=== PATIENT | female | born 1965 | race Caucasian/White ===

== ENCOUNTER 2017-07-05 18:59 | Emergency (ER) | payer OTHER ==
[2017-07-05 19:38] VITALS: BP 110/58
--- NOTE | 2017-07-05 20:05 | UC ---
Skin Complaint HPI - HPI Summary HPI Summary: C/O rash, itchy, red, scaling under left eye and at the right corner of the mouth. - History of Current Complaint Chief Complaint: UCSkin Time Seen by Provider: 07/05/17 19:55 Stated Complaint: FACIAL RASH Hx Obtained From: Patient Hx Last Menstrual Period: 12/27/14 ?: No Onset/Duration: Gradual Onset, Lasting Days - 3, Worse Since - onset Timing: Constant Onset Severity: Mild Current Severity: Mild Pain Intensity: 0 Location: Face Character: Pruritus, Redness Aggravating Factor(s): Nothing Alleviating Factor(s): Nothing Associated Signs & Symptoms: Positive: Cough - just started 2 days ago with wheezing, Rash. Negative: Nausea, Vomiting, Diaphoresis, Weakness, Fever, Chills, Abdominal Pain, Lightheadedness, Bruising, Tenderness - Allergy/Home Medications Allergies/Adverse Reactions: Allergies Allergy/AdvReac Type Severity Reaction Status Date / Time Morphine AdvReac Intermediate Palpitation Verified 07/05/17 19:30 s Review of Systems Skin: Rash Respiratory: Cough Is Patient Immunocompromised?: No All Other Systems Reviewed And Are Negative: Yes PMH/Surg Hx/FS Hx/Imm Hx Endocrine History: Diabetes Respiratory History: Asthma - Surgical History Surgical History: Yes Surgery Procedure, Year, and Place: Cholecystectomy-, Left knee replacement , 2017 - Family History Known Family History: Positive: Diabetes - Social History Occupation: Disabled Lives: With Family Alcohol Use: None Substance Use Type: None Smoking Status (MU): Former Smoker Type: Cigarettes When Did the Patient Quit Smoking/Using Tobacco: 1992 Physical Exam Triage Information Reviewed: Yes Appearance: Well-Appearing, No Pain Distress, Obese Vital Signs: Initial Vital Signs Temp 97.6 F 07/05/17 19:32 Pulse 77 07/05/17 19:32 Resp 20 07/05/17 19:32 BP 110/58 07/05/17 19:32 Pulse Ox 99 07/05/17 19:32 Vital Signs Reviewed: Yes Eyes: Positive: Conjunctiva Clear Neck exam: Normal Respiratory: Positive: Wheezing - expiratory wheeze with cough Cardiovascular Exam: Normal Musculoskeletal: Positive: Other: - antalgic gait Neurological Exam: Normal Psychological Exam: Normal Skin: Positive: rashes - scaling erythematous papular rash on the face. Course/Dx - Differential Diagnoses - Skin Complaint Differential Diagnoses: Cellulitis, Eczema, Impetigo - Diagnoses Provider Diagnoses: Eczema. Asthma with acute exacerbation. Discharge - Discharge Plan Condition: Stable Disposition: HOME Prescriptions: Cetirizine* [ZyrTEC 10 MG TAB*] 10 mg PO DAILY PRN #30 tab PRN Reason: Itching Hydrocortisone 2.5% CREAM(NF) 1 applic TOPICAL BID #30 tube Ketoconazole 2 % CREAM (NF) [Nizoral 2% CREAM (NF)] 1 applic TOPICAL BID #15 gm predniSONE TAB* [Deltasone TAB*] 20 mg PO DAILY #18 tab Patient Education Materials: Eczema (ED), Hydrocortisone (On the skin) Referrals: Gladis Barnhart MD [Primary Care Provider] - Additional Instructions: Try Head and Shoulders Intensive treatment for your scalp. Images Head: 1 - rash 2 - rash 3 - rash
== END 2017-07-05 20:30 | disposition home or self-care (01) ==
LOC: UCCORT 18:59
DX: L30.9 Dermatitis, unspecified (principal); J45.901 Unspecified asthma with (acute) exacerbation
CPT/HCPCS: 99212; G0463

== ENCOUNTER 2017-11-02 15:16 | Emergency (ER) | payer OTHER ==
[2017-11-02 16:55] VITALS: BP 128/58
--- NOTE | 2017-11-02 17:04 | UC ---
Headache HPI - HPI Summary HPI Summary: Patient complains of having headache for 1 week has not taken any Tylenol or ibuprofen has not had any recent falls or injuries no nausea or vomiting just ate a meal and tolerated it well. - History Of Current Complaint Chief Complaint: UCHeadache Stated Complaint: HEADACHE Time Seen by Provider: 11/02/17 16:57 Hx Obtained From: Patient Hx Last Menstrual Period: 12/27/14 ?: No Onset/Duration: Sudden Onset, Lasting Days - 7 Pain Intensity: 9 Pain Scale Used: 0-10 Numeric Timing: Constant Character: Pressure Location of Headache: Other: - top of head Aggravating Factor(s): Nothing Allevating Factor(s): Nothing Associated Signs And Symptoms: Positive: Negative - Allergies/Home Medications Allergies/Adverse Reactions: Allergies Allergy/AdvReac Type Severity Reaction Status Date / Time morphine Allergy Unknown palpatation Verified 11/02/17 17:25 s PMH/Surg Hx/FS Hx/Imm Hx Previously Healthy: No Endocrine History: Dyslipidemia Cardiovascular History: Hypertension Respiratory History: Asthma - Surgical History Surgical History: Yes Surgery Procedure, Year, and Place: Cholecystectomy-99, Left knee replacement , 2016 - Family History Known Family History: Positive: None, Diabetes - Social History Occupation: Unemployed Lives: Dormitory/Roommates Alcohol Use: None Substance Use Type: None Smoking Status (MU): Former Smoker Type: Cigarettes When Did the Patient Quit Smoking/Using Tobacco: 1992 Review of Systems Constitutional: Negative Skin: Negative Eyes: Negative ENT: Negative Respiratory: Negative Cardiovascular: Negative Gastrointestinal: Negative Genitourinary: Negative Motor: Negative Neurovascular: Negative Musculoskeletal: Negative Neurological: Headache Psychological: Negative Is Patient Immunocompromised?: No All Other Systems Reviewed And Are Negative: Yes Physical Exam Triage Information Reviewed: Yes Appearance: Well-Appearing, No Pain Distress, Well-Nourished Vital Signs: Initial Vital Signs Temp 97.9 F 11/02/17 16:50 Pulse 74 11/02/17 16:50 Resp 17 11/02/17 16:50 BP 128/58 11/02/17 16:50 Pulse Ox 98 11/02/17 16:50 Vital Signs Reviewed: Yes Eye Exam: Normal Eyes: Positive: Conjunctiva Clear ENT Exam: Normal ENT: Positive: Normal ENT inspection, Hearing grossly normal, Pharynx normal, Uvula midline. Negative: Nasal congestion, TMs normal, Trismus, Muffled voice, Hoarse voice, Dental tenderness, Sinus tenderness Dental Exam: Normal Neck exam: Normal Neck: Positive: Supple, Nontender, No Lymphadenopathy Respiratory Exam: Normal Respiratory: Positive: Chest non-tender, Lungs clear, Normal breath sounds, No respiratory distress, No accessory muscle use Cardiovascular Exam: Normal Cardiovascular: Positive: RRR, No Murmur, Pulses Normal, Brisk Capillary Refill Musculoskeletal Exam: Normal Musculoskeletal: Positive: Strength Intact, ROM Intact, No Edema Neurological Exam: Normal Neurological: Positive: Alert, Muscle Tone Normal Psychological Exam: Normal Skin Exam: Normal Re-Evaluation - Re-Evaluation First Eval Change: Improved Headache Course/Dx - Course Course Of Treatment: rest increase fluids tylenol or ibuprofen prn - Differential Dx/Diagnosis Provider Diagnoses: headache Discharge - Sign-Out/Discharge Documenting (check all that apply): Discharge/Admit/Transfer - Discharge Plan Condition: Stable Disposition: HOME Patient Education Materials: Acute Headache (ED), Ibuprofen (By mouth) Referrals: Gladis Barnhart MD [Primary Care Provider] - 2 Weeks - Billing Disposition and Condition Condition: STABLE Disposition: HOME
[2017-11-02] MEDS ORDERED: Ketorolac INJ* 60 MG/2 ML VIAL IM ONE (17:05)
== END 2017-11-02 17:55 | disposition home or self-care (01) ==
LOC: UCCORT 15:16
DX: R51 Headache (principal); Z88.5 Allergy status to narcotic agent; I10 Essential (primary) hypertension; Z87.891 Personal history of nicotine dependence
CPT/HCPCS: 96372; 99211; G0463; J1885

== ENCOUNTER 2019-02-12 14:40 | Emergency (ER) | payer OTHER ==
--- OUTSIDE RECORDS SUMMARY | 2019-02-12 14:56 | XMS REPORT | Continuity of Care Document ---
:1965 External Reference #:[id number] Author Name Mary Ann Rich PA Address [address] [place] [address] Care Team Providers Name Role Phone Gay Nguyen M.D. - Obstetrics & Care Team Information [facility] Gyne[facility] Devin Rollins MD - Otolaryngology Care Team Information [facility] Angel Durham MD - Endocrinology, Care Team Information [facility] [phone] Diabetes & Metabolism Gwendolyn Song DO - Hematology & Care Team Information [facility] Oncology Deb Rosas,[facility] - Surgical Care Team Information [employer] [place] Alexis Boyer MD - Obstetrics & Care Team Information [facility] Gynecology Samuel Sim M.D. - Surgery Care Team Information [employer] [place] Gladis Barnhart MD - Internal Medicine Care Team Information [facility] Physical Therapy/[address] Care Team Information [employer] [place] [phone] Orville Zelaya MD - Rheumatology Care Team Information [facility] Care Team Information [facility] pc - Physical Therapy Al Sanchez Care Team Information [facility] [employer] [place] [phone] Corwin Kincaid M.D. - Adult Care Team Information [facility] [place] [phone] Reconstructive Orthopaedic Surgery Patrick Cole MD - Gastroenterology Care Team Information [employer] [place] [phone] Sil Jones [employer] Care Team Information [employer] [place] [phone] Maxx Mosqueda [employer] - Nurse Care Team Information [facility] [employer] [place] [phone] Practitioner Problems Active Problems Provider Date Hyperlipidemia Florecita Gonzales, MSN, Onset: 08/30/2012 [employer]CHO[employer] PROGRAM COORDINATOR Benign essential hypertension Florecita Gonzales, MSN, Onset: 08/30/2012 AFTER SCHOOL PROGRAM COORDINATOR Iron deficiency anemia Gwendolyn Song Onset: 10/31/2014 Morbid obesity Florecita Gonzales, MSN, Onset: 08/30/2012 AFTER SCHOOL PROGRAM COORDINATOR Tenosynovitis of hand Krista Alvarenga M.D. Onset: 03/01/2015 Type 2 diabetes mellitus Florecita Gonzales, MSN, Onset: 08/30/2012 AFTER SCHOOL PROGRAM COORDINATOR Disorder of breast Krista Alvarenga M.D. Onset: 08/31/2014 Osteoporosis Krista Alvarenga M.D. Onset: 08/31/2014 Hypothyroidism Krista Alvarenga M.D. Onset: 10/12/2014 Essential hypertension Gladis Barnhart MD Onset: 05/23/2015 Shoulder joint pain Gladis Barnhart MD Onset: 07/06/2015 Benign paroxysmal positional [facility]: 2015 Allergic rhinitis Gladis Barnhart MD Onset: 09/14/2015 Headache Gladis Barnhart MD Onset: 09/14/2015 Arthroplasty of knee Monica Miller MD Onset: 05/23/2016 Abdominal pain Patrick Cole MD Onset: 08/22/2016 Gastroparesis syndrome Patrick Cole MD Onset: 08/22/2016 Enthesopathy of knee Corwin Kincaid M.D. Onset: 10/16/2016 Aftercare following joint replacement Corwin Kincaid M.D. Onset: 10/16/2016 surgery Heartburn Patrick Cole MD Onset: 11/26/2016 Gastroduodenitis Patrick Cole MD Onset: 11/26/2016 Benign neoplasm of stomach Patrick Cole MD Onset: 11/26/2016 Abnormal glucose level Gladis Barnhart MD Onset: 07/31/2017 Eruption Gladis Barnhart MD Onset: 07/31/2017 Sciatica Gladis Barnhart MD Onset: 10/28/2017 Thyroid function tests abnormal Gladis Barnhart MD Onset: 10/28/2017 Encounter for other general Gladis Barnhart MD Onset: 10/28/2017 examination Unspecified injury of head, initial Stephan Lam M.D. Onset: 2017 encounter Neck sprain Stephan Lam M.D. Onset: 02/02/2018 Disorder of bursa of shoulder region Erin Johnson PA Onset: 06/18/2018 Neck pain Erin Johnson PA Onset: 06/18/2018 Social History Type Date Description Comments Sex Unknown Tobacco Use Start: Unknown End: Former Cigarette Smoker Unknown 1-5 Cigarettes Daily ETOH Use Denies alcohol use Tobacco Use Start: Unknown End: Patient is a former smoked 20 years ago. Unknown smoker Recreational Drug Use Denies Drug Use Smoking Status Reviewed: 01/28/19 Patient is a former smoked 20 years ago. smoker Allergies, Adverse Reactions, Alerts Active Allergies Reaction Severity Comments Date Morphine chest pain 10/06/2014 Medications Active Medications SIG Qnty Indications Ordering Date Provider Metronidazole 1 by mouth twice a 10tabs Obey, 500mg Tablets day MD Gladis 9 Fluconazole 1 by mouth daily x 1tabs N76.0 Obey, 150mg Tablets 1. MD Gladis 9 Miralax 1 packet by mouth 30units Obey, 3350NF Packet daily as needed MD Gladis 9 for constipation Hydrocortisone use sparingly on 28.400gm R21 Obey, 1% Ointment forearms twice a MD Gladis 9 day for 2 weeks on 2 weeks off Diabetic Shoes And diabetic shoes and 1pair E11.9 Obey, Custom Molded Orthotics custom molded MD Gladis 9 orthotics dx: e11.9 Ammonium Lactate applied to her 140gm R23.4 Arturo, 12% Cream feet daily CARMEN Aponte 9 True Metrix Blood use for glucose 300units Obey, Glucosetest Strips monitoring 1-3 x MD Gladis 9 Strips per week and as needed. dx code: e11.9 type 2 diabetes mellitus without complications True Metrix True Metrix 300units Obey, lancets. To check MD Gladis 9 blood glucose fasting and 2 hr pp dx 11.9 Freestyle Insulinx Blood to test blood 1units Obey, Glucose Monitoring sugar fasting and MD Gladis 9 System 2 hours after W/Device Kit meals DX E11.9 Oxybutynin Chloride take one tablet 60tabs Obey, 5mg twice a day MD Gladis 8 Tablets Colace 1 by mouth daily 60caps K59.00 Gagen, 100mg Capsules and can take twice Rowan, 8 a day as needed MS, AFTER SCHOOL PROGRAM COORDINATOR-C, CNM Vitamin D3 take one capsule 90caps Obey, 2000Unit Capsules every day in MD Gladis 8 morning Acetaminophen Extra 1 tab by mouth 60tabs Obey, Strength every 12 hours as MD Gladis 8 500mg Tablets needed pain Diclofenac Sodium Take One Tablet By 60tabs Corwin Kincaid, 75mg Mouth Twice A Day M.D. [address] With Food Hydroxychloroquine take one tablet by 180tabs Obey, Sulfate mouth twice a day MD Gladis 8 200mg Tablets Wrist Brace Deluxe/Left/ wear brace on left 1units M65.832 Obey, Large-XL wrist MD Gladis 8 Misc Potassium Chloride Julieta 1 tab by mouth 30tabs Obey, ER every day MD Gladis 8 20Meq Tablets ER Ferrous Gluconate 1 tab by mouth 30tabs Oeby, 324(38Fe) once a day MD Gladis 7 mg Tablets Linzess 1 by mouth every 90caps K59.00 Mallory, 290mcg Capsules day MD Angel 7 Omeprazole 1 by mouth every 30tabs Obey, 20mg Tablets DR day MD Bianka Griffith Fexofenadine HCL take one tablet by 30tabs Gagen, 180mg mouth every day Rowan, 6 Tablets MS, AFTER SCHOOL PROGRAM COORDINATOR-C, CNM Fluticasone Propionate 2 sprays 1bottle J30.9 Obey, intranasal every MD Gladis 5 50mcg/Act day Proair HFA 2 puffs every 4 8.500gm Obey, 108(90Base) hours as needed MD Gladis 0 mcg/Act Aerosol Escitalopram Oxalate take one every day 30tabs Obey, 20mg MD Gladis 0 Tablets Aspirin take one tablet by 30tabs Gagen, 81mg Tablets DR mouth every day Rowan, 0 MS, AFTER SCHOOL PROGRAM COORDINATOR-C, CNM Hydrochlorothiazide take one capsule 90caps Gagen, 12.5mg by mouth every day Rowan, 0 Capsules MS, AFTER SCHOOL PROGRAM COORDINATOR-C, CNM Folic Acid Take One Tablet By 30tabs Obey, 1mg Tablets Mouth Every Day MD Gladis 0 Pravastatin Sodium take one tablet by 30tabs Obey, 80mg mouth every day MD Gladis 0 Tablets Methotrexate 3 tabs by mouth Zelaya, 2.5mg Tablets twice per day Orville JANE 0 Cephalexin Take One Capsule Unknown 500mg Capsules By Mouth Every 12 0 Hours History Medications Selsun Blue Wash hair, leave it 16Oz L21.9 Gladis Barnhart, 10/05/2018 - Naturals Dry on for 5 minutes 12/08/2018 Scalp and then rinse 3% every day for 2 Shampoo weeks. Breo Ellipta one inhalation 30units Gladis Barnhart, 08/08/2018 - every day 10/05/2018 200-25mcg/Inh Aerosol Medications Administered in Office Medication SIG Qnty Indications Ordering Provider Date Methylprednisolone acetate Erin Johnson PA 06/18/2018 (Depomedrol) 80mg injection Injection Methylprednisolone acetate Deb Rosas, 12/15/2017 (Depomedrol) 80mg injection RPAC Injection Betamethasone Acetate & Sodium Deb Rosas, 12/15/2017 Phosphate 3 MG Of Each RPAC Injection Depomedrol 40mg/1cc Deb Rosas, 12/02/2016 (methylprednisolone acetate) RPAC Injection Methylprednisolone acetate Deb Rosas, 05/21/2016 (Depomedrol) 80mg injection RPAC Injection Depomedrol 40mg/1cc Deb Rosas, 04/02/2015 (methylprednisolone acetate) RPAC Injection Depo-Medrol 20mg Deb Rosas, 04/02/2015 Injection RPAC Depomedrol 40mg/1cc Deb Rosas, 01/11/2015 (methylprednisolone acetate) RPAC Injection Depomedrol 40mg/1cc Fadi Morgan, 06/15/2014 (methylprednisolone acetate) , FACS Injection Methylprednisolone acetate Иван Tolliver, 02/13/2010 (Depomedrol) 80mg injection Injection Immunizations CPT Code Status Date Vaccine Reaction Lot # 95991 Given 05/07/2018 Influenza Virus Vaccine, Quadrivalent, 36 none [id number] Mos+, .5ML 75585 Given 03/17/2017 Influenza Virus Vaccine Quadrivalent Iiv4 [id number] [address] Given 03/17/2016 Influenza Virus Vaccine Split Virus Use For Individual 3Yr Older 19832 Given 06/04/2015 Tetnus Injection [id number] 78614 Given 06/04/2015 Pneumococcal Conjugate Vaccine 13 Valent [id number] For Intramuscular Use Q2038 Given 03/01/2015 Influenza Vaccine (Fluzone) Age 3 And [id number] Older Vital Signs Date Vital Result Comment 01/28/2019 1:30pm BP Systolic Sitting Left Arm 106 mmHg BP Diastolic Sitting Left Arm 62 mmHg Body Temperature 98.1 F Heart Rate 76 /min Respiratory Rate 20 /min Height 66.25 inches 5'6.25" Weight 279.00 lb BMI (Body Mass Index) 44.7 kg/m2 BSA (Body Surface Area) 2.31 m2 [place] body weight in kilograms 60 kg O2 % BldC Oximetry 94 % 01/10/2019 9:14am BP Systolic 106 mmHg BP Diastolic 59 mmHg Body Temperature 98.7 F Heart Rate 68 /min Height 66.25 inches 5'6.25" Weight 284.00 lb BMI (Body Mass Index) 45.5 kg/m2 BSA (Body Surface Area) 2.33 m2 [place] body weight in kilograms 60 kg O2 % BldC Oximetry 87 % Results Test Date Facility Test Result H/L Range Note Affirm 01/28/2019 [facility] Trichomonas Negative [Negative] 1 Vaginitis Panel [address] [address] [phone] Gardnerella vaginalis POSITIVE Abnormal [Negative] Grisel species Negative [Negative] 2 Urine Dipstick 01/28/2019 [facility] Ua Color dark yellow Yellow Ua Clarity cloudy Clear Ua Leuko 3+ High Negative Ua Nitrite neg Negative Ua Urobilinogen +- Low 0.2 - 1.0 E.U./dL Ua Protein +- Negative Ua PH 5.0 Low 6.5-7.5 Ua Blood neg Negative Ua Specific [place] 1.025 1.010-1.030 Ua Ketones neg Negative Ua Bilirubin neg Negative Ua Glucose neg Negative GFR/Bsa pred.black 01/24/2019 N2N/CCD Import GFR/Bsa pred.black >60 >60 SerPl MDRD-ArVRat SerPl MDRD-ArVRat Estimated glomerular 01/24/2019 N2N/CCD Import Estimated >60 >60 filtration rate glomerular (GFR) non-Afr filtration rate (GFR) non- Serum or plasma 01/24/2019 N2N/CCD Import Serum or plasma 0.8 0.6-1.3 creatinine creatinine measurement measurement (mass/volum (mass/volume) Serum or plasma urea 01/24/2019 N2N/CCD Import Serum or plasma 16 7-18 nitrogen measurement urea nitrogen (mass/vo measurement (mass/volume) Serum or plasma 01/24/2019 N2N/CCD Import Serum or plasma 118 High 74- 106 glucose measurement glucose measurement (mass/volume) (mass/volume) Automated blood 01/24/2019 N2N/CCD Import Automated blood 0.00 nucleated nucleated erythrocyte count erythrocyte count (count (count/volume) Automated blood 01/24/2019 N2N/CCD Import Automated blood 0.02 immature granulocyte immature count (number granulocyte count (number/volume) Automated blood 01/24/2019 N2N/CCD Import Automated blood 0.03 0.0-0.1 basophil count basophil count (number/volume) (number/volume) Automated blood 01/24/2019 N2N/CCD Import Automated blood 0.19 0.0-0.5 eosinophil count eosinophil count Blood monocytes 01/24/2019 N2N/CCD Import Blood monocytes 0.55 0.3-0.9 automated count automated count (number/volume) (number/volume) Automated blood 01/24/2019 N2N/CCD Import Automated blood 1.30 1.0-4.0 lymphocyte count lymphocyte count (number/volume) (number/volume) Absolute neutrophil 01/24/2019 N2N/CCD Import Absolute neutrophil 4.35 1.8-7.0 count count Automated blood 01/24/2019 N2N/CCD Import Automated blood 0.0 < 10/ 100 nucleated nucleated WBC erythrocyte count as erythrocyte count per as percentage of total leukocytes Automated blood 01/24/2019 N2N/CCD Import Automated blood 0.3 0.0-5.0 immature granulocyte immature count as perc granulocyte count as percentage of total leukocytes Automated basophil % 01/24/2019 N2N/CCD Import Automated basophil 0.5 0.0-1.1 % Automated eosinophil 01/24/2019 N2N/CCD Import Automated 3.0 0.0-6.6 % eosinophil % Serum or plasma 01/24/2019 N2N/CCD Import Serum or plasma 60 56-289 lipase measurement lipase measurement (enzymatic acti (enzymatic activity/volume) Serum or plasma 01/24/2019 N2N/CCD Import Serum or plasma 62 45-117 alkaline phosphatase alkaline measurement ( phosphatase measurement (enzymatic activity/volume) Serum or plasma 01/24/2019 N2N/CCD Import Serum or plasma 39 12-78 alanine alanine aminotransferase aminotransferase measureme measurement (enzymatic activity/volume) Serum or plasma 01/24/2019 N2N/CCD Import Serum or plasma 21 15-37 aspartate aspartate aminotransferase aminotransferase measure measurement (enzymatic activity/volume) Serum or plasma 01/24/2019 N2N/CCD Import Serum or plasma 0.2 0.2-1.0 total bilirubin total bilirubin measurement (mass/ measurement (mass/volume) Serum or plasma 01/24/2019 N2N/CCD Import Serum or plasma 1.0 albumin/globulin albumin/globulin mass ratio mass ratio Serum globulin 01/24/2019 N2N/CCD Import Serum globulin 3.7 1.9-4.3 measurement by measurement by calculation (mass/vo calculation (mass/volume) Serum or plasma 01/24/2019 N2N/CCD Import Serum or plasma 3.7 3.4-5.0 albumin measurement albumin measurement (mass/volume) (mass/volume) Serum or plasma 01/24/2019 N2N/CCD Import Serum or plasma 7.4 6.4-8.2 protein measurement protein measurement (mass/volume) (mass/volume) Serum or plasma 01/24/2019 N2N/CCD Import Serum or plasma 8.9 8.5-10.1 calcium measurement calcium measurement (mass/volume) (mass/volume) Serum or plasma 01/24/2019 N2N/CCD Import Serum or plasma 5 Low 8-16 anion gap anion gap Co2 SerPl-sCnc 01/24/2019 N2N/CCD Import Co2 SerPl-sCnc 31 21-32 Serum or plasma 01/24/2019 N2N/CCD Import Serum or plasma 104 98-107 chloride measurement chloride measurement Serum or plasma 01/24/2019 N2N/CCD Import Serum or plasma 3.8 3.5-5.1 potassium potassium measurement measurement Sodium SerPl-sCnc 01/24/2019 N2N/CCD Import Sodium SerPl-sCnc 140 136- 145 Serum or plasma urea 01/24/2019 N2N/CCD Import Serum or plasma 20.0 nitrogen/creatinine urea mass rati nitrogen/creatinine mass ratio Ua RFX Micro & 01/24/2019 [facility] Urine Color YELLOW Yellow 3 Culture II [address] [place], [place] [id number] [phone] Urine Clarity CLEAR Clear Urine Glucose - Dipstick NEGATIVE mg/dL Negative Urine Bilirubin - Dipstick NEGATIVE Negative Urine Ketone NEGATIVE mg/dL Negative Urine Specific [place] >= 1.030 Normal 1.010-1.030 Urine Blood TRACE Negative Urine PH 5.5 Low 6.5-7.5 Urine Protein - Dipstick NEGATIVE mg/dL Negative Urine Urobilinogen - Dipstick 0.2 E.U./dL Normal 0.2-1.0 Urine Nitrite - Dipstick NEGATIVE Negative Urine Leuk Esterase MODERATE Abnormal Negative Urine RBC 2-5 rbc/hpf 0-2 Urine WBC 30-50 wbc/hpf High 0-7 Urine Epithelial Cells MODERATE /lpf None Seen 4 Urine Mucus MODERATE None Seen Source: URINE, CLEAN CAT <SEE NOTE> 5 Urine Culture 01/24/2019 [facility] Urine Culture MIXED URETHRAL F <SEE [address] NOTE> [place] [address] [phone] Quantity > 100,000 CFU/mL 7 Urine color 01/24/2019 N2N/CCD Import Urine color Yellow Yellow determination determination Urine appearance 01/24/2019 N2N/CCD Import Urine appearance Clear Clear determination determination Urine glucose 01/24/2019 N2N/CCD Import Urine glucose Negative Negative measurement by measurement by automated test automated test strip strip (mass/volume) Urine total 01/24/2019 N2N/CCD Import Urine total Negative Negative bilirubin bilirubin detection by detection by automated test automated test strip Urine ketones 01/24/2019 N2N/CCD Import Urine ketones Negative Negative measurement by measurement by automated test automated test strip strip (mass/volume) Specific gravity 01/24/2019 N2N/CCD Import Specific gravity >=1.030 1.010-1.030 of Urine by of Urine by Automated test Automated test strip strip Urine hemoglobin 01/24/2019 N2N/CCD Import Urine hemoglobin Trace Negative detection by detection by automated test automated test strip strip Urine pH 01/24/2019 N2N/CCD Import Urine pH 5.5 Low 6.5-7.5 measurement by measurement by automated test automated test strip strip Urine protein 01/24/2019 N2N/CCD Import Urine protein Negative Negative measurement by measurement by automated test automated test strip strip (mass/volume) Urine 01/24/2019 N2N/CCD Import Urine 0.2 0.2-1.0 urobilinogen urobilinogen measurement measurement (units/volume) by (units/volume) t by test strip Urine nitrite 01/24/2019 N2N/CCD Import Urine nitrite Negative Negative detection by detection by automated test automated test strip strip Urine leukocyte 01/24/2019 N2N/CCD Import Urine leukocyte Moderate High Negative esterase esterase detection by detection by automated te automated test strip Automated urine 01/24/2019 N2N/CCD Import Automated urine 2-5 0-2 sediment sediment erythrocyte count erythrocyte by micr count by microscopy (number/high power field) Urine sediment 01/24/2019 N2N/CCD Import Urine sediment 30-50 High 0-7 leukocyte count leukocyte count by microscopy by microscopy (numb (number/high power field) Automated 01/24/2019 N2N/CCD Import Automated 8.5 4.3-13.2 monocyte % monocyte % Automated blood 01/24/2019 N2N/CCD Import Automated blood 20.2 20.0- 42.0 lymphocytes/100 lymphocytes/100 leukocytes leukocytes Automated blood 01/24/2019 N2N/CCD Import Automated blood 67.5 40.4- 72.8 neutrophils/100 neutrophils/100 leukocytes leukocytes Automated blood 01/24/2019 N2N/CCD Import Automated blood 10.3 8.9-12.4 platelet mean platelet mean volume volume measurement measurement Automated 01/24/2019 N2N/CCD Import Automated 15.6 High 11.7-14.4 erythrocyte erythrocyte distribution distribution width ratio width ratio Automated 01/24/2019 N2N/CCD Import Automated 47.5 High 36-47 erythrocyte erythrocyte distribution distribution width width Automated blood 01/24/2019 N2N/CCD Import Automated blood 146 Low 155- 360 platelet count platelet count (count/volume) (count/volume) Automated 01/24/2019 N2N/CCD Import Automated 32.9 30.8-34.3 erythrocyte mean erythrocyte mean corpuscular corpuscular hemoglobin hemoglobin concentration measurement (mass/volume) Automated 01/24/2019 N2N/CCD Import Automated 28.2 25.9-32.7 erythrocyte mean erythrocyte mean corpuscular corpuscular hemoglobin hemoglobin (mass per erythrocyte) Automated 01/24/2019 N2N/CCD Import Automated 85.7 80.9-99.0 erythrocyte mean erythrocyte mean corpuscular corpuscular volume (MCV volume (MCV) measurement Hct VFr Bld Auto 01/24/2019 N2N/CCD Import Hct VFr Bld Auto 36.5 36.0- 46.1 Blood hemoglobin 01/24/2019 N2N/CCD Import Blood hemoglobin 12.0 11.6- 15.8 measurement measurement (mass/volume) (mass/volume) Blood 01/24/2019 N2N/CCD Import Blood 4.26 3.90-5.40 erythrocytes erythrocytes automated count automated count (number/volume) (number/volume) Automated 01/24/2019 N2N/CCD Import Automated 6.4 3.1-10.7 leukocyte count leukocyte count (number/volume) (number/volume) CBC W/Automated 01/24/2019 [facility] White Blood 6.4 K/uL Normal 3.1-10.[address] [place] [address] [phone] Red Blood Count 4.26 M/uL Normal 3.90-5.40 Hemoglobin 12.0 gm/dL Normal 11.6-15.8 Hematocrit 36.5 % Normal 36.0-46.1 Mean Cell Volume 85.7 fl Normal 80.9-99.0 Mean Corpuscular HGB 28.2 pg Normal 25.9-32.7 Mean Corpuscular HGB Conc 32.9 g/dL Normal 30.8-34.3 Platelet Count 146 K/uL Low 155-360 Red Cell Distri Width SD 47.5 fl High 36-47 Red Cell Distri Width %CV 15.6 % High 11.7-14.4 Mean Platelet Volume 10.3 fl Normal 8.9-12.4 Neut% 67.5 % Normal 40.4-72.8 Lymph % 20.2 % Normal 20.0-42.0 Polk % 8.5 % Normal 4.3-13.2 Eo% 3.0 % Normal 0.0-6.6 Bas% 0.5 % Normal 0.0-1.1 Immature Grans 0.3 % Normal 0.0-5.0 NRBC % 0.0 /100WBC < 10/ 100 WBC Neut# 4.35 K/uL Normal 1.8-7.0 Lymph # 1.30 K/uL Normal 1.0-4.0 Polk # 0.55 K/uL Normal 0.3-0.9 Eos # 0.19 K/uL Normal 0.0-0.5 Baso # 0.03 K/uL Normal 0.0-0.1 Immature Grans Absolute 0.02 K/uL NRBC # 0.00 K/uL Mucus detection in 01/24/2019 N2N/CCD Import Mucus detection in Moderate None Seen urine sediment by urine sediment by light microsc light microscopy Epithelial cells 01/24/2019 N2N/CCD Import Epithelial cells Moderate None Seen detection in urine detection in urine sediment by li sediment by light microscopy Serum or plasma 01/16/2019 N2N/CCD Import Serum or plasma 0.3 0.2-1.0 total bilirubin total bilirubin measurement (mass/ measurement (mass/volume) Serum or plasma 01/16/2019 N2N/CCD Import Serum or plasma 20 15-37 aspartate aspartate aminotransferase aminotransferase measure measurement (enzymatic activity/volume) Serum or plasma 01/16/2019 N2N/CCD Import Serum or plasma 33 12-78 alanine alanine aminotransferase aminotransferase measureme measurement (enzymatic activity/volume) Serum or plasma 01/16/2019 N2N/CCD Import Serum or plasma 58 45-117 alkaline phosphatase alkaline measurement ( phosphatase measurement (enzymatic activity/volume) Serum or plasma 01/16/2019 N2N/CCD Import Serum or plasma 53 Low 56-289 lipase measurement lipase measurement (enzymatic acti (enzymatic activity/volume) Ua RFX Micro & 01/16/2019 [facility] Urine Color YELLOW Yellow 8 Culture II [address] [place] [address] [phone] Urine Clarity CLOUDY Clear Urine Glucose - Dipstick NEGATIVE mg/dL Negative Urine Bilirubin - Dipstick NEGATIVE Negative Urine Ketone TRACE mg/dL High Negative Urine Specific [place] >= 1.030 Normal 1.010-1.030 Urine Blood NEGATIVE Negative Urine PH 5.5 Low 6.5-7.5 Urine Protein - Dipstick NEGATIVE mg/dL Negative Urine Urobilinogen - Dipstick 0.2 E.U./dL Normal 0.2-1.0 Urine Nitrite - Dipstick NEGATIVE Negative Urine Leuk Esterase LARGE Abnormal Negative Urine RBC 0-2 rbc/hpf 0-2 Urine WBC 5-10 wbc/hpf 0-7 Urine Epithelial Cells MANY /lpf None Seen 9 Urine Bacteria MODERATE Abnormal None Seen Urine Amorph Sediment SMALL Negative Source: URINE, CLEAN CAT <SEE NOTE> 10 Urine Culture 01/16/2019 [facility] Urine Culture URETHRAL [address] [place] [address] [phone] Quantity 10,000 - 50,000 <SEE NOTE> 11 Urine color 01/16/2019 N2N/CCD Import Urine color Yellow Yellow determination determination Serum or plasma 01/16/2019 N2N/CCD Import Serum or plasma 1.0 albumin/globulin albumin/globulin mass ratio mass ratio Serum globulin 01/16/2019 N2N/CCD Import Serum globulin 3.5 1.9-4.3 measurement by measurement by calculation calculation (mass/vo (mass/volume) Serum or plasma 01/16/2019 N2N/CCD Import Serum or plasma 3.4 3.4-5.0 albumin albumin measurement measurement (mass/volume) (mass/volume) Serum or plasma 01/16/2019 N2N/CCD Import Serum or plasma 6.9 6.4-8.2 protein protein measurement measurement (mass/volume) (mass/volume) Serum or plasma 01/16/2019 N2N/CCD Import Serum or plasma 8.3 Low 8.5- 10.1 calcium calcium measurement measurement (mass/volume) (mass/volume) Serum or plasma 01/16/2019 N2N/CCD Import Serum or plasma 7 Low 8-16 anion gap anion gap Co2 SerPl-sCnc 01/16/2019 N2N/CCD Import Co2 SerPl-sCnc 27 21-32 Serum or plasma 01/16/2019 N2N/CCD Import Serum or plasma 107 98-107 chloride chloride measurement measurement Amorphous 01/16/2019 N2N/CCD Import Amorphous Small Negative sediment sediment detection in detection in urine sediment by urine sediment by light microscopy Bacteria 01/16/2019 N2N/CCD Import Bacteria Moderate High None Seen detection in detection in urine sediment by urine sediment light micr by light microscopy Epithelial cells 01/16/2019 N2N/CCD Import Epithelial cells Many None Seen detection in detection in urine sediment by urine sediment li by light microscopy Urine sediment 01/16/2019 N2N/CCD Import Urine sediment 5-10 0-7 leukocyte count leukocyte count by microscopy by microscopy (numb (number/high power field) Automated urine 01/16/2019 N2N/CCD Import Automated urine 0-2 0-2 sediment sediment erythrocyte count erythrocyte by micr count by microscopy (number/high power field) Urine leukocyte 01/16/2019 N2N/CCD Import Urine leukocyte Large High Negative esterase esterase detection by detection by automated te automated test strip Urine nitrite 01/16/2019 N2N/CCD Import Urine nitrite Negative Negative detection by detection by automated test automated test strip strip Urine 01/16/2019 N2N/CCD Import Urine 0.2 0.2-1.0 urobilinogen urobilinogen measurement measurement (units/volume) by (units/volume) t by test strip Urine protein 01/16/2019 N2N/CCD Import Urine protein Negative Negative measurement by measurement by automated test automated test strip strip (mass/volume) Urine pH 01/16/2019 N2N/CCD Import Urine pH 5.5 Low 6.5-7.5 measurement by measurement by automated test automated test strip strip Urine hemoglobin 01/16/2019 N2N/CCD Import Urine hemoglobin Negative Negative detection by detection by automated test automated test strip strip Specific gravity 01/16/2019 N2N/CCD Import Specific gravity >=1.030 1.010-1.030 of Urine by of Urine by Automated test Automated test strip strip Urine ketones 01/16/2019 N2N/CCD Import Urine ketones Trace High Negative measurement by measurement by automated test automated test strip strip (mass/volume) Urine total 01/16/2019 N2N/CCD Import Urine total Negative Negative bilirubin bilirubin detection by detection by automated test automated test strip Urine glucose 01/16/2019 N2N/CCD Import Urine glucose Negative Negative measurement by measurement by automated test automated test strip strip (mass/volume) Urine appearance 01/16/2019 N2N/CCD Import Urine appearance Cloudy Clear determination determination Automated 01/16/2019 N2N/CCD Import Automated 0.4 0.0-1.1 basophil % basophil % Automated 01/16/2019 N2N/CCD Import Automated 3.4 0.0-6.6 eosinophil % eosinophil % Automated 01/16/2019 N2N/CCD Import Automated 6.4 4.3-13.2 monocyte % monocyte % Automated blood 01/16/2019 N2N/CCD Import Automated blood 23.7 20.0- 42.0 lymphocytes/100 lymphocytes/100 leukocytes leukocytes Automated blood 01/16/2019 N2N/CCD Import Automated blood 65.5 40.4- 72.8 neutrophils/100 neutrophils/100 leukocytes leukocytes Automated blood 01/16/2019 N2N/CCD Import Automated blood 10.4 8.9-12.4 platelet mean platelet mean volume volume measurement measurement Automated 01/16/2019 N2N/CCD Import Automated 15.0 High 11.7-14.4 erythrocyte erythrocyte distribution distribution width ratio width ratio Automated 01/16/2019 N2N/CCD Import Automated 46.2 36-47 erythrocyte erythrocyte distribution distribution width width Automated blood 01/16/2019 N2N/CCD Import Automated blood 139 Low 155- 360 platelet count platelet count (count/volume) (count/volume) Automated 01/16/2019 N2N/CCD Import Automated 33.0 30.8-34.3 erythrocyte mean erythrocyte mean corpuscular corpuscular hemoglobin hemoglobin concentration measurement (mass/volume) Automated 01/16/2019 N2N/CCD Import Automated 28.3 25.9-32.7 erythrocyte mean erythrocyte mean corpuscular corpuscular hemoglobin hemoglobin (mass per erythrocyte) Automated 01/16/2019 N2N/CCD Import Automated 86.0 80.9-99.0 erythrocyte mean erythrocyte mean corpuscular corpuscular volume (MCV volume (MCV) measurement Hct VFr Bld Auto 01/16/2019 N2N/CCD Import Hct VFr Bld Auto 34.9 Low 36.0 -46.1 Blood hemoglobin 01/16/2019 N2N/CCD Import Blood hemoglobin 11.5 Low 11.6 -15.8 measurement measurement (mass/volume) (mass/volume) Blood 01/16/2019 N2N/CCD Import Blood 4.06 3.90-5.40 erythrocytes erythrocytes automated count automated count (number/volume) (number/volume) CBC W/Automated 01/16/2019 [facility] White Blood 4.7 K/uL Normal 3.1-10.[address] [place] [address] [phone] Red Blood Count 4.06 M/uL Normal 3.90-5.40 Hemoglobin 11.5 gm/dL Low 11.6-15.8 Hematocrit 34.9 % Low 36.0-46.1 Mean Cell Volume 86.0 fl Normal 80.9-99.0 Mean Corpuscular HGB 28.3 pg Normal 25.9-32.7 Mean Corpuscular HGB Conc 33.0 g/dL Normal 30.8-34.3 Platelet Count 139 K/uL Low 155-360 Red Cell Distri Width SD 46.2 fl Normal 36-47 Red Cell Distri Width %CV 15.0 % High 11.7-14.4 Mean Platelet Volume 10.4 fl Normal 8.9-12.4 Neut% 65.5 % Normal 40.4-72.8 Lymph % 23.7 % Normal 20.0-42.0 Polk % 6.4 % Normal 4.3-13.2 Eo% 3.4 % Normal 0.0-6.6 Bas% 0.4 % Normal 0.0-1.1 Immature Grans 0.6 % Normal 0.0-5.0 NRBC % 0.0 /100WBC < 10/ 100 WBC Neut# 3.06 K/uL Normal 1.8-7.0 Lymph # 1.11 K/uL Normal 1.0-4.0 Polk # 0.30 K/uL Normal 0.3-0.9 Eos # 0.16 K/uL Normal 0.0-0.5 Baso # 0.02 K/uL Normal 0.0-0.1 Immature Grans Absolute 0.03 K/uL NRBC # 0.00 K/uL Automated leukocyte 01/16/2019 N2N/CCD Import Automated leukocyte 4.7 3.1-10.7 count count (number/volume) (number/volume) Serum or plasma 01/16/2019 N2N/CCD Import Serum or plasma 4.4 3.5-5.1 potassium potassium measurement measurement Sodium SerPl-sCnc 01/16/2019 N2N/CCD Import Sodium SerPl-sCnc 141 136- 145 Serum or plasma 01/16/2019 N2N/CCD Import Serum or plasma 18.5 urea urea nitrogen/creatinine nitrogen/creatinine mass rati mass ratio GFR/Bsa pred.black 01/16/2019 N2N/CCD Import GFR/Bsa pred.black >60 >60 SerPl MDRD-ArVRat SerPl MDRD-ArVRat Estimated 01/16/2019 N2N/CCD Import Estimated >60 >60 glomerular glomerular filtration rate filtration rate (GFR) non-Afr (GFR) non- Serum or plasma 01/16/2019 N2N/CCD Import Serum or plasma 0.7 0.6-1.3 creatinine creatinine measurement measurement (mass/volum (mass/volume) Serum or plasma 01/16/2019 N2N/CCD Import Serum or plasma 13 7-18 urea nitrogen urea nitrogen measurement measurement (mass/vo (mass/volume) Serum or plasma 01/16/2019 N2N/CCD Import Serum or plasma 89 74-106 glucose measurement glucose measurement (mass/volume) (mass/volume) Automated blood 01/16/2019 N2N/CCD Import Automated blood 0.00 nucleated nucleated erythrocyte count erythrocyte count (count (count/volume) Automated blood 01/16/2019 N2N/CCD Import Automated blood 0.03 immature immature granulocyte count granulocyte count (number (number/volume) Automated blood 01/16/2019 N2N/CCD Import Automated blood 0.02 0.0-0.1 basophil count basophil count (number/volume) (number/volume) Automated blood 01/16/2019 N2N/CCD Import Automated blood 0.16 0.0-0.5 eosinophil count eosinophil count Blood monocytes 01/16/2019 N2N/CCD Import Blood monocytes 0.30 0.3-0.9 automated count automated count (number/volume) (number/volume) Automated blood 01/16/2019 N2N/CCD Import Automated blood 1.11 1.0-4.0 lymphocyte count lymphocyte count (number/volume) (number/volume) Absolute neutrophil 01/16/2019 N2N/CCD Import Absolute neutrophil 3.06 1.8-7.0 count count Automated blood 01/16/2019 N2N/CCD Import Automated blood 0.0 < 10/ 100 nucleated nucleated WBC erythrocyte count erythrocyte count as per as percentage of total leukocytes Automated blood 01/16/2019 N2N/CCD Import Automated blood 0.6 0.0-5.0 immature immature granulocyte count granulocyte count as perc as percentage of total leukocytes Ua RFX Micro & 12/08/2018 [facility] Urine Color YELLOW Yellow 12 Culture II [address] [place] [address] [phone] Urine Clarity SL CLOUDY Clear Urine Glucose - Dipstick NEGATIVE mg/dL Negative Urine Bilirubin - Dipstick NEGATIVE Negative Urine Ketone NEGATIVE mg/dL Negative Urine Specific [place] >= 1.030 Normal 1.010-1.030 Urine Blood TRACE Negative Urine PH 5.5 Low 6.5-7.5 Urine Protein - Dipstick NEGATIVE mg/dL Negative Urine Urobilinogen - Dipstick 0.2 E.U./dL Normal 0.2-1.0 Urine Nitrite - Dipstick NEGATIVE Negative Urine Leuk Esterase MODERATE Abnormal Negative Urine RBC 0-2 rbc/hpf 0-2 Urine WBC > 50 wbc/hpf High 0-7 Urine Epithelial Cells MANY /lpf None Seen 13 Urine Bacteria MANY Abnormal None Seen Urine Amorph Sediment MODERATE Negative Urine Culture 12/08/2018 [facility] Urine Culture MIXED URETHRAL F [address] <SEE NOTE> [place] [address] [phone] Quantity > 100,000 CFU/mL 15 Microalbumin,Random 12/06/2018 [facility] Microalbumin,Urine 7.5 < 20.0 [address] mg/[place] [address] [phone] Microalb/Creat 12/06/2018 [facility] Microalbumin/Creatin 4.9 < 30.0 Ratio,Random [address] ine Ratio ug/[place] [address] ah [phone] Urine Creatinine Conc 154 mg/dL Urine microalbumin 12/06/2018 N2N/CCD Import Urine microalbumin 7.5 < 20.0 measurement by measurement by detection limit detection limit <= 20 mg/l (mass/volume) Urine 12/06/2018 N2N/CCD Import Urine 4.9 < 30.0 albumin/creatinine albumin/creatinine ratio with ratio with detection limi detection limit of 20mg/l or less Urine creatinine 12/06/2018 N2N/[employer] Import Urine creatinine 154 measurement measurement (mass/volume) (mass/volume) Serum or plasma 12/02/2018 N2N/CCD Import Serum or plasma 0.85 0.76-1. free thyroxine free thyroxine 46 (FT4) measurement ( (FT4) measurement (mass/volume) Serum or plasma 12/02/2018 N2N/[employer] Import Serum or plasma 4.53 High 0.30- 4. thyrotropin thyrotropin 20 measurement measurement (units/vol (units/volume) Blood estimated 12/02/2018 N2N/[employer] Import Blood estimated 117 average glucose average glucose determination by e determination by estimation from glycated hemoglobin (mass/volume) HgbA1c % 12/02/2018 N2N/CCD Import HgbA1c % 5.7 4.2-6.3 Serum or plasma 12/02/2018 N2N/[employer] Import Serum or plasma 93 < 100 cholesterol in LDL cholesterol in LDL measurement by measurement by calculation (mass/volume) Serum or plasma 12/02/2018 N2N/[employer] Import Serum or plasma 43 >40 cholesterol in HDL cholesterol in HDL measurement (ma measurement (mass/volume) Serum or plasma 12/02/2018 N2N/[employer] Import Serum or plasma 140 <150 triglyceride triglyceride measurement measurement (mass/vol (mass/volume) Serum or plasma 12/02/2018 N2N/[employer] Import Serum or plasma 164 <200 cholesterol cholesterol measurement measurement (mass/volu (mass/volume) Glycohemoglobin A1c 12/02/2018 [facility] Glycohemoglobin 5.7 % Normal 4.2-6.3 17, [address] (A1c) 18 [place], [place] [id number] [phone] eAG 117 mg/dL CBC W/Automated 12/02/2018 [facility] White Blood 6.0 K/uL Normal 3.1-10.[address] Count [place], [place] [id number] [phone] Red Blood Count 4.50 M/uL Normal 3.90-5.40 Hemoglobin 12.2 gm/dL Normal 11.6-15.8 Hematocrit 38.0 % Normal 36.0-46.1 Mean Cell Volume 84.4 fl Normal 80.9-99.0 Mean Corpuscular HGB 27.1 pg Normal 25.9-32.7 Mean Corpuscular HGB Conc 32.1 g/dL Normal 30.8-34.3 Platelet Count 138 K/uL Low 155-360 Red Cell Distri Width SD 44.1 fl Normal 36-47 Red Cell Distri Width %CV 14.6 % High 11.7-14.4 Mean Platelet Volume 10.3 fl Normal 8.9-12.4 Neut% 70.4 % Normal 40.4-72.8 Lymph % 18.2 % Low 20.0-42.0 Polk % 7.2 % Normal 4.3-13.2 Eo% 3.2 % Normal 0.0-6.6 Bas% 0.5 % Normal 0.0-1.1 Immature Grans 0.5 % Normal 0.0-5.0 NRBC % 0.0 /100WBC < 10/ 100 WBC Neut# 4.19 K/uL Normal 1.8-7.0 Lymph # 1.08 K/uL Normal 1.0-4.0 Polk # 0.43 K/uL Normal 0.3-0.9 Eos # 0.19 K/uL Normal 0.0-0.5 Baso # 0.03 K/uL Normal 0.0-0.1 Immature Grans Absolute 0.03 K/uL NRBC # 0.00 K/uL Comprehensive Metabolic 12/02/2018 [facility] Glucose 111 mg/dL High 74-106 Panel [address] [place] [address] [phone] BUN 17 mg/dL Normal 7-18 Creatinine 0.8 mg/dL Normal 0.6-1.3 Glom Filtration Rate, Estimate >60 mL/min >60 If >60 mL/min >60 19 BUN/Creat 21.2 ratio Sodium 139 mmol/L Normal 136-145 Potassium 3.5 mmol/L Normal 3.5-5.1 Chloride 103 mmol/L Normal 98-107 Carbon Dioxide 29 mmol/L Normal 21-32 Anion Gap 7 mEq/L Low 8-16 Calcium 8.8 mg/dL Normal 8.5-10.1 Total Protein 7.3 g/dL Normal 6.4-8.2 Albumin 3.6 g/dL Normal 3.4-5.0 Globulin 3.7 g/dL Normal 1.9-4.3 Alb/Glob 1.0 ratio Bilirubin,Total 0.4 mg/dL Normal 0.2-1.0 Sgot/Ast 14 U/L Low 15-37 20 SGPT/Alt 27 U/L Normal 12-78 Alkaline Phosphatase 70 U/L Normal 45-117 Reflex add FT3? N Reflex add FT4? Y Vitamin B12 And 12/02/2018 [facility] Vitamin B12 607 pg/mL Normal 193-986 Folate [address] [place] [address] [phone] Folic Acid 17.9 ng/mL High 3.1-17.5 Reflex add FT3? N Reflex add FT4? Y TSH Reflex 12/02/2018 [facility] Thyroid Stim 4.53 uIU/mL High 0.30-4.20 FT4 And/Or [address] [facility] Hormone FT3 [place] [address] [phone] Reflex add FT3? N Reflex add FT4? Y LDL Cholesterol Profile 12/02/2018 [facility] Cholesterol 164 mg/dL <[address] [place] [address] [phone] Triglycerides 140 mg/dL <150 22 HDL Cholesterol 43 mg/dL >40 23 LDL-Cholesterol 93 mg/dL < 100 24 Reflex add FT3? N Reflex add FT4? Y Free T4 12/02/2018 [facility] Free T4 0.85 ng/dL Normal 0.76-1.46 [address] [place] [address] [phone] Reflex add FT3? N Reflex add FT4? Y Serum or plasma 12/02/2018 N2N/CCD Import Serum or plasma [phone] vitamin B12 vitamin B12 measurement measurement (mass/volu (mass/volume) Serum or plasma 12/02/2018 N2N/CCD Import Serum or plasma 17.9 High 3.1- 17.5 folate measurement folate (mass/volume) measurement (mass/volume) Comprehensive 09/06/2018 [facility] Sodium 140 Normal 135-145 Metabolic Panel [phone] mmol/L Potassium 3.7 mmol/L Normal 3.5-5.0 Chloride 101 mmol/L Normal 101-111 Co2 Carbon Dioxide 30 mmol/L Normal 22-32 Anion Gap 9 mmol/L Normal 2-11 Glucose 114 mg/dL High 70-100 Blood Urea Nitrogen 17 mg/dL Normal 6-24 Creatinine 0.84 mg/dL Normal 0.51-0.95 BUN/Creatinine Ratio 20.2 High 8-20 Calcium 9.2 mg/dL Normal 8.6-10.3 Total Protein 6.8 g/dL Normal 6.4-8.9 Albumin 4.3 g/dL Normal 3.2-5.2 Globulin 2.5 g/dL Normal 2-4 Albumin/Globulin Ratio 1.7 Normal 1-3 Total Bilirubin 0.50 mg/dL Normal 0.2-1.0 Alkaline Phosphatase 62 U/L Normal 34-104 Alt 11 U/L Normal 7-52 Ast 13 U/L Normal 13-39 Egfr Non- 70.4 >60 Egfr 85.2 >60 25 LDL Cholesterol 09/06/2018 [facility] Triglycerides 104 mg/dL 26 Profile [phone] Cholesterol 177 mg/dL 27 HDL Cholesterol 47.1 mg/dL 28 LDL Cholesterol 109 mg/dL 29 Laboratory test 09/06/2018 [facility] Hemoglobin A1c 5.5 % Normal 4.0-5.6 30 finding [phone] (Glyco HGB) CBC W/Automated 09/06/2018 [facility] White Blood 6.0 Normal 3.5-10.8 Diff [phone] Count 10^3/uL Red Blood Count 4.96 10^6/uL High 3.70-4.87 Hemoglobin 13.5 g/dL Normal 12.0-16.0 Hematocrit 41 % Normal 33-41 Mean Corpuscular Volume 82 fL Normal 80-97 Mean Corpuscular Hemoglobin 27 pg Normal 27-31 Mean Corpuscular HGB Conc 33 g/dL Normal 31-36 Red Cell Distribution Width 16 % High 10.5-15 Platelet Count 142 10^3/uL Low 150-450 Mean Platelet Volume 8.2 fL Normal 7.4-10.4 Abs Neutrophils 3.9 10^3/uL Normal 1.5-7.7 Abs Lymphocytes 1.4 10^3/uL Normal 1.0-4.8 Abs Monocytes 0.4 10^3/uL Normal 0-0.8 Abs Eosinophils 0.2 10^3/uL Normal 0-0.6 Abs Basophils 0.1 10^3/uL Normal 0-0.2 Abs Nucleated RBC 0 10^3/uL Granulocyte % 66.0 % Lymphocyte % 23.6 % Monocyte % 6.8 % Eosinophil % 2.7 % Basophil % 0.9 % Nucleated Red Blood Cells % 0.1 Laboratory 09/06/2018 [facility] TSH (Thyroid 5.25 Normal 0.34-5.60 test finding [phone] Stim Horm) mcIU/mL Folate 18.08 ng/mL >3.99 Vitamin B12 507 pg/mL Normal 180-914 31 Vitamin D Total 25(Oh) 43.9 ng/mL Normal 20-50 1 N76.0 2 Method: BD Affirm VPIII DNA Probe Assay 3 PAIN IN ABD 4 POSSIBLE UROGENITAL CONTAMINATION. 5 URINE, CLEAN CATCH 6 MIXED URETHRAL KELLEE 7 > 100,000 CFU/mL SPECIMEN IS A MIX OF GRAM POSITIVE ORGANISMS CONSISTENT WITH SKIN VAGINAL CONTAMINATION. SUGGEST REPEAT SPECIMEN IF CLINICALLY INDICATED. 8 STOMACH PAIN, SWOLLEN 9 POSSIBLE UROGENITAL CONTAMINATION. 10 URINE, CLEAN CATCH 11 10,000 - 50,000 CFU/mL 12 R30.0 13 POSSIBLE UROGENITAL CONTAMINATION. 14 MIXED URETHRAL KELLEE 15 > 100,000 CFU/mL SPECIMEN IS A MIX OF GRAM POSITIVE ORGANISMS CONSISTENT WITH SKIN VAGINAL CONTAMINATION. SUGGEST REPEAT SPECIMEN IF CLINICALLY INDICATED. 16 E11.9,G25.0,E78.2 17 R53.83, E78.2, E11.9 18 Elevated levels of HbA1c suggest the need for more aggressive treatment of glycemia. The [employer] recommends that a primary goal of therapy should be a HbA1c of <7% and that physicians should re-evaluate the treatment regimen in patients with HbA1c values consistently >8%. 19 Note: Persistent reduction for 3 months or more in an eGFR <60 mL/min/1.73 m2 defines CKD. Patients with eGFR values >/=60 mL/min/1.73 m2 may also have CKD if evidence of persistent proteinuria is present. The original MDRD equation for estimated GFR is not valid for patients less than 18 years of age. Additional information may be found at www.kdoqi.org. 20 Values below the stated reference ranges of AST and ALT can be seen in normal populations. Clinical correlation is suggested. 21 Reference Guidelines*: Desirable: ........... < 200 mg/dL Borderline High: ..... 200-239 mg/dL High: ................ >= 240 mg/dL * The National Cholesterol Education Program (NCEP) 22 Reference Guidelines*: Normal: ............. < 150 mg/dL Borderline High: .... 150-199 mg/dL High: ............... 200-499 mg/dL Very High: .......... > 500 mg/dL * Source: National Cholesterol Education Program (NCEP) 23 Reference Guidelines*: Low HDL: ..... < 40 mg/dL Normal: ..... 40-60 mg/dL Desirable: ... > 60 mg/dL *The National Cholesterol Education Program(NCEP) 24 Reference Guidelines*: Optimal:........... <100 mg/dL Near Optimal....... 100-129 mg/dL Borderline High.... 130-159 mg/dL High............... 160-189 mg/dL Very High.......... >=190 mg/dL * Source: National Cholesterol Education Program (NCEP) 25 Because ethnic data is not always readily available, this report includes an eGFR for both -Americans and non- Americans. The National Kidney Disease Education Program (NKDEP) does not endorse the use of the MDRD equation for patients that are not between the ages of 18 and 70, are , have extremes of body size, muscle mass, or nutritional status, or are non- or non-. According to the National Kidney Foundation, irrespective of diagnosis, the stage of the disease is based on the level of kidney function: Stage Description GFR(mL/min/1.73 m(2)) 1 Kidney damage with normal or decreased GFR 90 2 Kidney damage with mild decrease in GFR 60-89 3 Moderate decrease in GFR 30-59 4 Severe decrease in GFR 15-29 5 Kidney failure <15 (or dialysis) 26 Desirable: <150 Borderline High: 150-199 High: 200-499 Very High: >500 27 Desirable: <200 Borderline High: 200-239 High: >239 28 Low: <40 Desirable: 40-60 High: >60 29 Desirable: <100 Near Optimal: 100-129 Borderline High: 130-159 High: 160-189 Very High: >189 30 Therapeutic target for the treatment of diabetes mellitus patients is <7% HBA1C, and in selective patients <6.0%. Please refer to [employer] Association diabetic care guidelines for further information. 31 Normal Range 180 to 914 Indeterminate Range 145 to 180 Deficient Range <145 Procedures Date Code Description Status 01/10/2019 53707 Pare Hyperkeratotic Lesion, 2-4 Completed 12/08/2018 46274 Brief Emotional/Behav Assessment W/ Scoring Doc Per Completed Standard Inst 10/06/2018 57494 Pare Hyperkeratotic Lesion, 2-4 Completed 10/06/2018 [id number] Diabetic Foot Exam Completed 09/06/2018 [id number] Mammogram Completed 08/18/2017 [id number] Mammogram Completed 12/02/2016 [id number] Mammogram Completed 06/18/2015 [id number] Mammogram Completed 03/08/2015 [id number] Mammogram Completed 06/08/2014 [id number] Colonoscopy Completed 04/21/2013 [id number] Mammogram Completed 12/16/2011 [id number] Mammogram Completed 12/05/2011 [id number] Mammogram Completed 10/17/2011 [id number] Mammogram Completed Medical Devices Description No Information Available Encounters Type Date Location Provider Dx Diagnosis Office Visit 01/28/2019 Primary Care Mary Ann Rich R10.9 Unspecified 1:45p Office HVIELKA Carey abdominal pain N76.0 Acute vaginitis Office Visit 12/08/2018 9:30a Primary Care Rowan Carmichael, R21 Rash and other Office MS, [employer] PROGRAM COORDINATOR-C, CNM nonspecific skin eruption K59.00 Constipation, unspecified R94.6 Abnormal results of thyroid function studies N95.0 Postmenopausal bleeding E78.5 Hyperlipidemia, unspecified R30.0 Dysuria F43.21 Adjustment disorder with depressed mood Office Visit 11/15/2018 2:30p Primary Care Amol, E11.9 Type 2 diabetes Office MS Rowan, mellitus without [employer] PROGRAM COORDINATOR-C, CNM complications L84 Corns and callosities R21 Rash and other nonspecific skin eruption Office Visit 10/06/2018 1:00p Podiatry Office Fadi Morris, E11.9 Type 2 diabetes DPM mellitus without complications L84 Corns and callosities M79.671 Pain in right foot M79.672 Pain in left foot R23.4 Changes in skin texture L85.3 Xerosis cutis Office Visit 10/05/2018 3:30p Primary Care Amol, E11.9 Type 2 diabetes Office MS Rowan, mellitus without [employer] COORDINATOR-C, CNM complications E78.2 Mixed hyperlipidemia L21.9 Seborrheic dermatitis, unspecified G25.0 Essential tremor F43.21 Adjustment disorder with depressed mood R51 Headache Assessments Date Code Description Provider 01/28/2019 R10.9 Unspecified abdominal pain Mary Ann Rich PA 01/28/2019 N76.0 Acute vaginitis Mary Ann Rich PA 01/10/2019 E11.9 Type 2 diabetes mellitus without Fadi Morris, DPM complications 01/10/2019 L84 Corns and callosities Fadi Morris, DPM 12/08/2018 R21 Rash and other nonspecific skin Amol, Rowan, MS, AFTER SCHOOL PROGRAM COORDINATOR-C, eruption [facility] 12/08/2018 K59.00 Constipation, unspecified Gagen, Rowan, MS, AFTER SCHOOL PROGRAM COORDINATOR-C, [facility] 12/08/2018 R94.6 Abnormal results of thyroid function Rowan Carmichael, MS , AFTER SCHOOL PROGRAM COORDINATOR-C, studies [facility] 12/08/2018 N95.0 Postmenopausal bleeding Gagen, Rowan, MS, AFTER SCHOOL PROGRAM COORDINATOR-C, CN 12/08/2018 E78.5 Hyperlipidemia, unspecified Gagen, Rowan, MS, AFTER SCHOOL PROGRAM COORDINATOR-C, CN 12/08/2018 R30.0 Dysuria Yolywei, Rowan, MS, AFTER SCHOOL PROGRAM COORDINATOR-C, [facility] 12/08/2018 F43.21 Adjustment disorder with depressed Gagwei, Rowan, MS, AFTER SCHOOL PROGRAM COORDINATOR-C, mood CN 11/15/2018 E11.9 Type 2 diabetes mellitus without Gagen, Rowan, MS, AFTER SCHOOL PROGRAM COORDINATOR -C, complications [facility] 11/15/2018 L84 Corns and callosities Gagen, Rowan, MS, AFTER SCHOOL PROGRAM COORDINATOR-C, CNM 11/15/2018 R21 Rash and other nonspecific skin Gagen, Rowan, MS, AFTER SCHOOL PROGRAM COORDINATOR-C, eruption CNM 10/06/2018 E11.9 Type 2 diabetes mellitus without Fadi Morris, DPM complications 10/06/2018 L84 Corns and callosities Fadi Morris, DPM 10/06/2018 M79.671 Pain in right foot Fadi Morris, DPM 10/06/2018 M79.672 Pain in left foot Fadi Morris, DPM 10/06/2018 R23.4 Changes in skin texture Fadi Morris, DPM 10/06/2018 L85.3 Xerosis cutis Fadi Morris, DP 10/05/2018 E11.9 Type 2 diabetes mellitus without Gagen, Rowan, MS, AFTER SCHOOL PROGRAM COORDINATOR -C, complications CN 10/05/2018 E78.2 Mixed hyperlipidemia Gagen, Rowan, MS, AFTER SCHOOL PROGRAM COORDINATOR-C, CN 10/05/2018 L21.9 Seborrheic dermatitis, unspecified Gagen, Rowan, MS, AFTER SCHOOL PROGRAM COORDINATOR-C, CN 10/05/2018 G25.0 Essential tremor Gagen, Rowan, MS, AFTER SCHOOL PROGRAM COORDINATOR-C, CN 10/05/2018 F43.21 Adjustment disorder with depressed Gagwei, Rowan, MS, AFTER SCHOOL PROGRAM COORDINATOR-C, mood [facility] 10/05/2018 R51 Headache Gagen, Rowan, MS, AFTER SCHOOL PROGRAM COORDINATOR-C, CNM 09/20/2018 B35.0 Tinea barbae and tinea capitis Gagen, Rowan, MS, AFTER SCHOOL PROGRAM COORDINATOR-C , CNM 09/20/2018 E11.9 Type 2 diabetes mellitus without Gagen, Rowan, MS, AFTER SCHOOL PROGRAM COORDINATOR -C, complications CN 09/20/2018 E78.2 Mixed hyperlipidemia Gagen, Rowan, MS, AFTER SCHOOL PROGRAM COORDINATOR-C, CN 09/20/2018 F43.21 Adjustment disorder with depressed Gagen, Rowan, MS, AFTER SCHOOL PROGRAM COORDINATOR-C, mood [facility] 09/20/2018 R51 Headache Gagen, Rowan, MS, AFTER SCHOOL PROGRAM COORDINATOR-C, CNM Plan of Treatment Future Appointment(s):02/21/2019 10:00 am - Mary Ann Rich PA at [facility] [id number]/09/2019 10:50 am - Ceferino Berry MD at GI04/14/2019 10:05 am - Fadi Morris DPM at Podiatry [id number]/11/2019 10:00 am - Rowan Carmichael, MS, AFTER SCHO[employer] PROGRAM COORDINATOR-C, CNM at [facility] Iixyyp1501/28/2019 - Mary Ann Rich, PAR10.9 Unspecified abdominal painComments:Upper and lower abdominal pains. Unclear etiology.Will have radiology review CT. One report indicates hepatomegaly and splenomegaly, the other states normal.N76.0 Acute vaginitisNew Medication: Fluconazole 150 mg - 1 by mouth daily x 1.Comments:Reviewed urine cx. Overgrowth of normal kellee. Stop antibiotic.Start Fluconazole.Send cultures as notedFollow up:Follow-up as needed Functional Status Functional Condition Comment Date Status Independent with all ADL's Active Mental Status Description No Information Available Referrals Refer to Dr Reason for Referral Status Appt Date Fadi Morris DPM type 2 diabetes exam Scheduled 01/10/2019 [address] [place] [address] [phone] Faustino Hough MD abdominal pain was going to dr [place] pls Scheduled send notes [address] [place] [address] [phone]
[2019-02-12 15:15] VITALS: BP 127/64
--- NOTE | 2019-02-12 15:38 | UC ---
Knee Pain HPI - HPI Summary HPI Summary: Was chasing after her friends boyfriend and fell hitting both knees, left > right, and right chest. No SOB. - History of Current Complaint Chief Complaint: UCLowerExtremity Stated Complaint: S/P FALL,BILATERAL KNEE PAIN Time Seen by Provider: 02/12/19 15:23 Hx Obtained From: Patient Hx Last Menstrual Period: 12/27/14 ?: No Onset/Duration: Sudden Onset, Lasting Hours - 2, Still Present Severity Initially: Severe Severity Currently: Moderate Pain Intensity: 7 Character: Dull, Aching, Throbbing Aggravating Factor(s): Movement, Weight Bearing Alleviating Factor(s): Rest Associated Signs And Symptoms: Positive: Bruising Able to Bear Weight: Yes - Allergies/Home Medications Allergies/Adverse Reactions: Allergies Allergy/AdvReac Type Severity Reaction Status Date / Time morphine Allergy Unknown palpatation Verified 02/12/19 15:05 s Home Medications: Home Medications Diclofenac Sodium 75 mg PO BID 02/12/19 [History Confirmed 02/12/19] Escitalopram * [Lexapro 5 mg (NF)] 5 mg PO DAILY 02/12/19 [History Confirmed 12/24] Methotrexate TAB* 8 tab PO WEEKLY 02/12/19 [History Confirmed 02/12/19] Nystatin TOP POWDER* 1 applic TOPICAL DAILY 02/12/19 [History Confirmed 02/12/19 ] Omeprazole 20 mg PO DAILY 02/12/19 [History Confirmed 02/12/19] Oxybutynin TAB* [Ditropan TAB*] 5 mg PO DAILY 02/12/19 [History Confirmed ] PMH/Surg Hx/FS Hx/Imm Hx Endocrine History: Diabetes Other Endocrine History: Lupus Cardiovascular History: Hypertension Respiratory History: Asthma - Surgical History Surgical History: Yes Surgery Procedure, Year, and Place: Cholecystectomy-99, Left knee replacement , 2017 - Family History Known Family History: Positive: Cardiac Disease, Hypertension, Diabetes - Social History Occupation: Unemployed Lives: Dormitory/Roommates Alcohol Use: None Substance Use Type: None Smoking Status (MU): Former Smoker Type: Cigarettes When Did the Patient Quit Smoking/Using Tobacco: 1992 Review of Systems All Other Systems Reviewed And Are Negative: Yes Skin: Positive: Bruising - right upper arm, left knee. Respiratory: Positive: Cough - with wheezing Musculoskeletal: Positive: Arthralgia - left knee> right knee., Myalgia - right upper chest wall. Physical Exam Triage Information Reviewed: Yes Appearance: Well-Appearing, Pain Distress - mild, Obese Vital Signs: Initial Vital Signs Temp 96.8 F 02/12/19 15:10 Pulse 65 02/12/19 15:10 Resp 22 02/12/19 15:10 BP 127/64 02/12/19 15:10 Pulse Ox 97 02/12/19 15:10 Vital Signs Reviewed: Yes Eyes: Positive: Conjunctiva Clear ENT: Positive: Pharynx normal - edentulous, TMs normal Neck exam: Normal Respiratory: Positive: Lungs clear, Wheezing - expiratory wheeze with cough.. Negative: Chest non-tender - tender right upper chest wall. Cardiovascular Exam: Normal Musculoskeletal: Positive: Other: - Antalgic gain. Left knee with medial/ superior patellar bruising with tenderness. No tenderness over the right patella. Right shoulder ROM normal . Neurological Exam: Normal Psychological Exam: Normal Skin: Positive: Other - bruise right upper arm and left patella. Diagnostics - Radiology No standard instances Radiology Interpretation Completed By: ED Physician Summary of Radiographic Findings: negative Knee Pain Course/Dx - Differential Dx/Diagnosis Differential Diagnosis/HQI/PQRI: Abrasion, Contusion, Fracture (Closed), Sprain Provider Diagnosis: Contusion of knee, left, Fall Discharge ED - Sign-Out/Discharge Documenting (check all that apply): Patient Departure All imaging exams completed and their final reports reviewed: Yes - Discharge Plan Condition: Stable Disposition: HOME Patient Education Materials: Contusion in Adults (ED) Referrals: Gladis Barnhart MD [Primary Care Provider] - - Billing Disposition and Condition Condition: STABLE Disposition: Home
== END 2019-02-12 16:45 | disposition home or self-care (01) ==
LOC: UCCORT 14:40
DX: S80.02XA Contusion of left knee, initial encounter (principal); W19.XXXA Unspecified fall, initial encounter; Y93.02 Activity, running; Y92.9 Unspecified place or not applicable; E11.9 Type 2 diabetes mellitus without complications; M32.9 Systemic lupus erythematosus, unspecified; I10 Essential (primary) hypertension; Z87.891 Personal history of nicotine dependence
CPT/HCPCS: 99212; G0463